=== PATIENT | female | born 1995 | race Asian ===

== ENCOUNTER 2018-01-15 22:05 | Emergency (ER) | payer OTHER ==
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
[2018-01-16] MEDS ORDERED: IBUPROFEN 600 MG TAB PO ONE (00:15)
[2018-01-16] MEDS ORDERED: TETANUS/DIPHTHERIA TOXOID ADULT 0.5 ML VIAL IM ONE (00:30)
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
== END 2018-01-16 02:29 | disposition home or self-care (01) ==
LOC: NEPD 22:05
DX: S80.812A Abrasion, left lower leg, initial encounter (principal); M79.605 Pain in left leg; M54.2 Cervicalgia; M25.511 Pain in right shoulder; V43.62XA Car passenger injured in collision with other type car in traffic accident, initial encounter; Y92.410 Unspecified street and highway as the place of occurrence of the external cause; Z23 Encounter for immunization
CPT/HCPCS: 72050; 72170; 90471; 90714